=== PATIENT | female | born 1970 | race Caucasian/White ===

== ENCOUNTER → 2020-05-25 | Outpatient (CLI) | payer BC, SELFPAY ==
[~2020-05-25] MED LIST: CIPRO500 MG PO; PYRIDIUM200 MG PO
== END ==
LOC: RAD 11:52
DX: S80.911A Unspecified superficial injury of right knee, initial encounter (principal); M17.11 Unilateral primary osteoarthritis, right knee; X58.XXXA Exposure to other specified factors, initial encounter
CPT/HCPCS: 73564

== ENCOUNTER → 2021-06-27 | Outpatient (CLI) | payer BC, SELFPAY ==
[2021-06-27 12:41] LABS: RED BLOOD COUNT 5.01 M/UL (4.00-5.10); WHITE BLOOD COUNT 5.6 K/UL (4.5-11.0)
[2021-06-27 13:27] LABS: BUN/CREATININE RATIO 19 (0-10)
== END ==
LOC: LAB 10:45
PROVIDERS: Nurse Practitioner
DX: Z12.11 Encounter for screening for malignant neoplasm of colon (principal)
CPT/HCPCS: 36415; 71046; 80048; 84703; 85025; 93005